=== PATIENT | female | born 1995 | race Caucasian/White ===

== ENCOUNTER 2016-06-02 20:13 | Emergency (ER) | payer BC ==
--- NOTE | 2016-06-02 22:06 | DIAGNOSTIC IMAGING REPORT ---
PROCEDURE: US OB 1ST TRIMESTER W/TRANSVAG INDICATION: ABNORMAL BLEEDING TECHNIQUE: Hutchison scale, color, and spectral Doppler transabdominal and endovaginal sonographic images of the first trimester gravid uterus were obtained. COMPARISON: None. FINDINGS: TRANSABDOMINAL SCANS: The gravid uterus is anteverted in position and contains a fundal gestational sac with a moderate decidual response. No suspicious adnexal mass. Grossly normal kidneys. TRANSVAGINAL SCANS: There is a fundal intrauterine gestational sac with an average sac diameter of 8.4 mm which corresponds to a 2-hesc-5-day gestation. Yolk sac was identified but no visible pole. No perigestational hemorrhage. The cervix is closed and has a normal appearance. Normal vascularity in the uterus. The left ovary measures approximately 2.9 x 2.7 x 2.6 cm and contains a peripherally hypervascular corpus luteum measuring about 2.2 cm. The right ovary measures about 2.6 x 1.3 x 1.6 cm and has a normal echotexture and vascularity. IMPRESSION: 1. Intrauterine with sac diameter corresponding to a 7-cwny-7-day gestation with estimated due date 01/28/2017. pole is not yet identified. Follow serial Beta hCG levels and consider ultrasound in 1-2 weeks to determine viability. 2. No evidence of perigestational hemorrhage or a threatened . 3. Left ovarian corpus luteum.
--- NOTE | 2016-06-02 22:06 | DIAGNOSTIC IMAGING REPORT ---
PROCEDURE: US OB 1ST TRIMESTER W/TRANSVAG INDICATION: ABNORMAL BLEEDING TECHNIQUE: Hutchison scale, color, and spectral Doppler transabdominal and endovaginal sonographic images of the first trimester gravid uterus were obtained. COMPARISON: None. FINDINGS: TRANSABDOMINAL SCANS: The gravid uterus is anteverted in position and contains a fundal gestational sac with a moderate decidual response. No suspicious adnexal mass. Grossly normal kidneys. TRANSVAGINAL SCANS: There is a fundal intrauterine gestational sac with an average sac diameter of 8.4 mm which corresponds to a 0-qcae-4-day gestation. Yolk sac was identified but no visible pole. No perigestational hemorrhage. The cervix is closed and has a normal appearance. Normal vascularity in the uterus. The left ovary measures approximately 2.9 x 2.7 x 2.6 cm and contains a peripherally hypervascular corpus luteum measuring about 2.2 cm. The right ovary measures about 2.6 x 1.3 x 1.6 cm and has a normal echotexture and vascularity. IMPRESSION: 1. Intrauterine with sac diameter corresponding to a 3-ccja-7-day gestation with estimated due date 01/28/2017. pole is not yet identified. Follow serial Beta hCG levels and consider ultrasound in 1-2 weeks to determine viability. 2. No evidence of perigestational hemorrhage or a threatened . 3. Left ovarian corpus luteum.
--- NOTE | 2016-06-02 22:32 | ED CLINICAL REPORT ---
Clinical Report - Physicians/Mid Levels [facility] [address] [place] [address] 06/02/2016 20:17 [id number] Time Seen: 20:55 Jun 02 2016. Arrived- By private vehicle. Historian- patient (Friend (FEMALE)). HISTORY OF PRESENT ILLNESS Chief Complaint: VAGINAL BLEEDING. This started just prior to arrival and still present. The symptoms are described as mild. No urinary frequency or urgency of urination. Last normal menstrual period- April 24. (, last menstrual period middle of April, now approximately 6 weeks IUP, spotted today just 1 hour prior to arrival. Patient was her blood type is A+. Denies any pain. Denies any lightheadedness, syncope. Denies any vaginal discharge.). REVIEW OF SYSTEMS No vomiting or skin rash. All systems otherwise negative, except as recorded above. PAST HISTORY Problems: Problems. . Medications: Vitamins Oral. Allergies: No Known Drug Allergy. SOCIAL HISTORY Never smoker. Alcohol use. No drug use. ADDITIONAL NOTES The nursing notes have been reviewed. PHYSICAL EXAM Vital Signs: 06/02/2016 20:24 BP: 137/73. HR: 77. RR: 16. O2 saturation: 100%. Temp: 98.7 F. Pain level now: 0/10. Appearance: Alert. HEENT: Normal external inspection. CVS: Heart sounds normal. Respiratory: No respiratory distress. Breath sounds normal. Abdomen: Soft and nontender. Bowel sounds normal. No abdominal tenderness. : Slight vaginal bleeding, consisting of bright red blood, via the cervical os. No tenderness present on bimanual exam. No tenderness with movement of the cervix. Skin: Skin warm. Normal skin color. LABS, X-RAYS, AND EKG Laboratory Tests: UA-Culture if indicated: (RYAN: 06/02/2016 20:30) ( MsgRcvd 06/02/2016 22:15) Final results Test Result Flag Units (Reference) URINE COLOR LIGHT YELLOW URINE APPEARANCE CLEAR URINE GLUCOSE NEGATIVE (NEGATIVE) URINE BILIRUBIN NEGATIVE (NEGATIVE) URINE KETONE NEGATIVE (NEGATIVE) URINE SPECIFIC GRAVITY <= 1.005 L (1.010-1.030) URINE PH 6.0 (5.0-8.0) URINE PROTEIN NEGATIVE (NEGATIVE) URINE UROBILINOGEN 0.2 EU/dL (0.2-1.0) URINE NITRITE NEGATIVE (NEGATIVE) URINE BLOOD TRACE-LYSED (NEGATIVE) URINE LEUK ESTERASE NEGATIVE (NEGATIVE) URINE RBC NONE SEEN rbc/hpf (0-1) URINE WBC RARE wbc/hpf (0-1) URINE EPITHELIAL CELLS 0-1 EPI/hpf (0-5) URINE BACTERIA NONE SEEN (NONE SEEN) URINE COMMENT CULT NOT INDICATED URINE CULTURES ARE SET-UP BASED ON THE FOLLOWING CRITERIA:POSITIVE NITRITEPOSITIVE LEUKOCYTE ESTERASEGREATER THAN 10 WHITE BLOOD CELLSMODERATE (2+) OR GREATER BACTERIA CBC w Diff: (RYAN: 06/02/2016 20:54) ( [facility] [place] 21:08) Final results Test Result Flag Units (Reference) WHITE BLOOD COUNT 8.3 K/uL (4.5-11.5) RED BLOOD COUNT 4.32 M/uL (4.00-5.20) HEMOGLOBIN 13.1 gm/dL (12.0-16.0) HEMATOCRIT 38.3 % (36.0-46.0) MEAN CELL VOLUME 89 fL (80-100) MEAN CORPUSCULAR HGB 30 pg (26-34) MEAN CORPUSCULAR HGB CONC 34 g/dL (31-37) RED CELL DISTRIBUTION WIDTH 12.5 % (11.6-14.8) PLATELET COUNT 297 K/uL (150-400) NEUTROPHIL % 77.1 H % (50-75) LYMPH % 14.7 L % (25-40) MONO % 7.0 % (3-14) EOSINOPHIL % 0.8 % (0-4) BASOPHIL % 0.4 % (0-2) CMP: (RYAN: 06/02/2016 20:54) ( [facility] [place] 22:29) Final results Test Result Flag Units (Reference) GLUCOSE 106 mg/dL (70-110) BUN 11 mg/dL (7-18) CREATININE 0.9 mg/dL (0.6-1.3) Estimated GFR >60 mL/min Estimated GFR- >60 mL/min Note: Persistent reduction over 3 months in eGFR<60 mL/min/1.73 m2 defines CKD. Patients with eGFR values>=60 mL/min/1.73 m2 may also have CKD if evidence ofpersistent proteinuria. Additional information may be foundat www.kidney.org. SODIUM 141 mmol/L (136-145) POTASSIUM 3.6 mmol/L (3.5-5.1) CHLORIDE 106 mmol/L (98-107) CARBON DIOXIDE 24 mmol/L (21-32) CALCIUM 9.2 mg/dL (8.5-10.1) TOTAL PROTEIN 7.3 g/dL (6.4-8.2) ALBUMIN 4.0 g/dL (3.3-5.0) BILIRUBIN, TOTAL 1.0 mg/dL (0.0-1.0) ALKALINE PHOSPHATASE 60 U/L (46-116) AST (SGOT) 16 U/L (15-37) ALT (SGPT) 20 U/L (12-78) BETA HCG, QUANTITATIVE 5808 mIU/mL REFERENCE RANGE:Adult Males: <2 mIU/mLNon- Females: <6 mIU/mL Females:Approximate Approximate hCGGestational Age Range (mIU/mL) 0-1 week 0-501-2 weeks 40-3002-3 weeks 100-84694-2 weeks 500-35527-7 months 5,000-200,0002-3 months 10,000-100,0002nd trimester 3,000-50,0003rd trimester 1,000-50,000 Wet Prep: (RYAN: 06/02/2016 20:45) ( MsgRcvd 06/02/2016 22:02) Final results SPECIMEN DESCRIPTION: C Test Result Flag Units (Reference) WET MOUNT CLUE CELLS:: FEW * EPITHELIAL CELLS: MODERATE -- SOURCE?: CERVIX WHITE BLOOD CELLS: FEW TRICHOMONAS:: NONE -- YEAST:: NONE . Note - Tests: (IMPRESSION: 1. Intrauterine with sac diameter corresponding to a 0-geho-7-day gestation with estimated due date 01/28/2017. pole is not yet identified. Follow serial Beta hCG levels and consider ultrasound in 1-2 weeks to determine viability. 2. No evidence of perigestational hemorrhage or a threatened . 3. Left ovarian corpus luteum. Electronically Final signed by:Hillary Conteh MD 06/02/2016 10:06:10 PM). PROGRESS AND PROCEDURES Course of Care: Chaperoned exam with RN She reports she is A positive. At this time patient with no pain. Minimal spotting. HCD as above. Discussed this with patient need follow-up and childless. Patient decided if she will be having the to term or having an . Discussed options with her. She understands need to follow-up. Ultrasound consistent with hCG, LMP, And gestational age. 06/02/2016 21:45 BP: 110/62. HR: 82. RR: 16. O2 saturation: 100%. Pain level now: 0/10. Patient is stable. Symptoms better. Patient/family counseled. Disposition: Discharged. CLINICAL IMPRESSION Threatened . INSTRUCTIONS Drink plenty of fluids. (repeat labs in 48 hours BETA HCG, QUANTITATIVE 5808). Follow-up with: Uziel Lisa MD, Obstetrics/Gynecology, , [facility], [address] [place] [address] (Electronically signed by Nusrat Soni P.A.-C 06/02/2016 22:37)
--- NOTE | 2016-06-02 22:32 | ED ORDER SUMMARY ---
..... Patient: BERT HERNANDEZ OrderSheet [facility] VisitID: [id number] [place] [address] 20y, F Registration Date/Time: 06/02/2016 ORDER SHEET Weight: 81.6 kg (stated) Allergies: No Known Drug Allergy GENERAL ORDERS: US OB 1st Trimester w Transvag (april 24) Urgent (20:28 06/02/2016 EKoroleva P.A.-C) (Ack 20:29 CHategekimana) (21:59 MCook R.N.) CBC w Diff Urgent (20:28 06/02/2016 EKoroleva P.A.-C) (Ack 20:32 CHategekimana) (20:59 CHagerty ER Button Cutting Machine Operator) CMP Urgent (20:28 06/02/2016 EKoroleva P.A.-C) (Ack 20:32 CHategekimana) (20:59 CHagerty ER Button Cutting Machine Operator) Serum Quantitative Urgent (20:28 06/02/2016 EKoroleva P.A.-C) (Ack 20:32 CHategekimana) (20:59 CHagerty ER Button Cutting Machine Operator) Pelvic Exam Setup (20:28 06/02/2016 EKoroleva P.A.-C) (20:32 CHategekimana) GC/Chlamydia (Cervix) (c) Urgent (21:53 06/02/2016 JQuivey R.N. verbal order read back to EKoroleva P.A.-C) (21:59 MCook R.N.) Wet Prep (Cervix) (c) Urgent (21:54 06/02/2016 JQuivey R.N. verbal order read back to EKoroleva P.A.-C) (21:59 MCook R.N.) UA-Culture if indicated Urgent (21:58 06/02/2016 EKoroleva P.A.-C) (21:59 MCook R.N.) MEDICATION ORDERS: IV FLUIDS: ORDER SHEET NOTES: [Electronically signed by Nusrat Soni PLeticiaA.-C (22:37 06/02/2016)] [Electronically signed by Halima Andrew R.N. (22:38 06/02/2016)] [Electronically locked/signed by Halima Andrew R.N. (22:38 06/02/2016)]
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
--- NOTE | 2016-06-02 22:32 | ED ORDER SUMMARY ---
..... Patient: BERT HERNANDEZ OrderSheet [facility] VisitID: [id number] [place] [address] 20y, F Registration Date/Time: 06/02/2016 ORDER SHEET Weight: 81.6 kg (stated) Allergies: No Known Drug Allergy GENERAL ORDERS: US OB 1st Trimester w Transvag (april 24) Urgent (20:28 06/02/2016 EKoroleva P.A.-C) (Ack 20:29 CHategekimana) (21:59 MCook R.N.) CBC w Diff Urgent (20:28 06/02/2016 EKoroleva P.A.-C) (Ack 20:32 CHategekimana) (20:59 CHagerty ER Information Security Specialist) CMP Urgent (20:28 06/02/2016 EKoroleva P.A.-C) (Ack 20:32 CHategekimana) (20:59 CHagerty ER Information Security Specialist) Serum Quantitative Urgent (20:28 06/02/2016 EKoroleva P.A.-C) (Ack 20:32 CHategekimana) (20:59 CHagerty ER Information Security Specialist) Pelvic Exam Setup (20:28 06/02/2016 EKoroleva P.A.-C) (20:32 CHategekimana) GC/Chlamydia (Cervix) (c) Urgent (21:53 06/02/2016 JQuivey R.N. verbal order read back to EKoroleva P.A.-C) (21:59 MCook R.N.) Wet Prep (Cervix) (c) Urgent (21:54 06/02/2016 JQuivey R.N. verbal order read back to EKoroleva P.A.-C) (21:59 MCook R.N.) UA-Culture if indicated Urgent (21:58 06/02/2016 EKoroleva P.A.-C) (21:59 MCook R.N.) MEDICATION ORDERS: IV FLUIDS: ORDER SHEET NOTES: [Electronically signed by Nusrat Soni PLeticiaA.-C (22:37 06/02/2016)] [Electronically signed by Halima Andrew R.N. (22:38 06/02/2016)] [Electronically locked/signed by Halima Andrew R.N. (22:38 06/02/2016)]
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
--- NOTE | 2016-06-02 22:32 | ED CLINICAL REPORT ---
Clinical Report - Physicians/Mid Levels [facility] [address] [place] [address] 06/02/2016 20:17 [id number] Time Seen: 20:55 Jun 02 2016. Arrived- By private vehicle. Historian- patient (Friend (FEMALE)). HISTORY OF PRESENT ILLNESS Chief Complaint: VAGINAL BLEEDING. This started just prior to arrival and still present. The symptoms are described as mild. No urinary frequency or urgency of urination. Last normal menstrual period- April 24. (, last menstrual period middle of April, now approximately 6 weeks IUP, spotted today just 1 hour prior to arrival. Patient was her blood type is A+. Denies any pain. Denies any lightheadedness, syncope. Denies any vaginal discharge.). REVIEW OF SYSTEMS No vomiting or skin rash. All systems otherwise negative, except as recorded above. PAST HISTORY Problems: Problems. . Medications: Vitamins Oral. Allergies: No Known Drug Allergy. SOCIAL HISTORY Never smoker. Alcohol use. No drug use. ADDITIONAL NOTES The nursing notes have been reviewed. PHYSICAL EXAM Vital Signs: 06/02/2016 20:24 BP: 137/73. HR: 77. RR: 16. O2 saturation: 100%. Temp: 98.7 F. Pain level now: 0/10. Appearance: Alert. HEENT: Normal external inspection. CVS: Heart sounds normal. Respiratory: No respiratory distress. Breath sounds normal. Abdomen: Soft and nontender. Bowel sounds normal. No abdominal tenderness. : Slight vaginal bleeding, consisting of bright red blood, via the cervical os. No tenderness present on bimanual exam. No tenderness with movement of the cervix. Skin: Skin warm. Normal skin color. LABS, X-RAYS, AND EKG Laboratory Tests: UA-Culture if indicated: (RYAN: 06/02/2016 20:30) ( MsgRcvd 06/02/2016 22:15) Final results Test Result Flag Units (Reference) URINE COLOR LIGHT YELLOW URINE APPEARANCE CLEAR URINE GLUCOSE NEGATIVE (NEGATIVE) URINE BILIRUBIN NEGATIVE (NEGATIVE) URINE KETONE NEGATIVE (NEGATIVE) URINE SPECIFIC GRAVITY <= 1.005 L (1.010-1.030) URINE PH 6.0 (5.0-8.0) URINE PROTEIN NEGATIVE (NEGATIVE) URINE UROBILINOGEN 0.2 EU/dL (0.2-1.0) URINE NITRITE NEGATIVE (NEGATIVE) URINE BLOOD TRACE-LYSED (NEGATIVE) URINE LEUK ESTERASE NEGATIVE (NEGATIVE) URINE RBC NONE SEEN rbc/hpf (0-1) URINE WBC RARE wbc/hpf (0-1) URINE EPITHELIAL CELLS 0-1 EPI/hpf (0-5) URINE BACTERIA NONE SEEN (NONE SEEN) URINE COMMENT CULT NOT INDICATED URINE CULTURES ARE SET-UP BASED ON THE FOLLOWING CRITERIA:POSITIVE NITRITEPOSITIVE LEUKOCYTE ESTERASEGREATER THAN 10 WHITE BLOOD CELLSMODERATE (2+) OR GREATER BACTERIA CBC w Diff: (RYAN: 06/02/2016 20:54) ( [facility] 06/02/2016 21:08) Final results Test Result Flag Units (Reference) WHITE BLOOD COUNT 8.3 K/uL (4.5-11.5) RED BLOOD COUNT 4.32 M/uL (4.00-5.20) HEMOGLOBIN 13.1 gm/dL (12.0-16.0) HEMATOCRIT 38.3 % (36.0-46.0) MEAN CELL VOLUME 89 fL (80-100) MEAN CORPUSCULAR HGB 30 pg (26-34) MEAN CORPUSCULAR HGB CONC 34 g/dL (31-37) RED CELL DISTRIBUTION WIDTH 12.5 % (11.6-14.8) PLATELET COUNT 297 K/uL (150-400) NEUTROPHIL % 77.1 H % (50-75) LYMPH % 14.7 L % (25-40) MONO % 7.0 % (3-14) EOSINOPHIL % 0.8 % (0-4) BASOPHIL % 0.4 % (0-2) CMP: (RYAN: 06/02/2016 20:54) ( [facility] 06/02/2016 22:29) Final results Test Result Flag Units (Reference) GLUCOSE 106 mg/dL (70-110) BUN 11 mg/dL (7-18) CREATININE 0.9 mg/dL (0.6-1.3) Estimated GFR >60 mL/min Estimated GFR- >60 mL/min Note: Persistent reduction over 3 months in eGFR<60 mL/min/1.73 m2 defines CKD. Patients with eGFR values>=60 mL/min/1.73 m2 may also have CKD if evidence ofpersistent proteinuria. Additional information may be foundat www.kidney.org. SODIUM 141 mmol/L (136-145) POTASSIUM 3.6 mmol/L (3.5-5.1) CHLORIDE 106 mmol/L (98-107) CARBON DIOXIDE 24 mmol/L (21-32) CALCIUM 9.2 mg/dL (8.5-10.1) TOTAL PROTEIN 7.3 g/dL (6.4-8.2) ALBUMIN 4.0 g/dL (3.3-5.0) BILIRUBIN, TOTAL 1.0 mg/dL (0.0-1.0) ALKALINE PHOSPHATASE 60 U/L (46-116) AST (SGOT) 16 U/L (15-37) ALT (SGPT) 20 U/L (12-78) BETA HCG, QUANTITATIVE 5808 mIU/mL REFERENCE RANGE:Adult Males: <2 mIU/mLNon- Females: <6 mIU/mL Females:Approximate Approximate hCGGestational Age Range (mIU/mL) 0-1 week 0-501-2 weeks 40-3002-3 weeks 100-18277-6 weeks 500-65142-2 months 5,000-200,0002-3 months 10,000-100,0002nd trimester 3,000-50,0003rd trimester 1,000-50,000 Wet Prep: (RYAN: 06/02/2016 20:45) ( MsgRcvd 06/02/2016 22:02) Final results SPECIMEN DESCRIPTION: C Test Result Flag Units (Reference) WET MOUNT CLUE CELLS:: FEW * EPITHELIAL CELLS: MODERATE -- SOURCE?: CERVIX WHITE BLOOD CELLS: FEW TRICHOMONAS:: NONE -- YEAST:: NONE . Note - Tests: (IMPRESSION: 1. Intrauterine with sac diameter corresponding to a 0-lure-5-day gestation with estimated due date 01/28/2017. pole is not yet identified. Follow serial Beta hCG levels and consider ultrasound in 1-2 weeks to determine viability. 2. No evidence of perigestational hemorrhage or a threatened . 3. Left ovarian corpus luteum. Electronically Final signed by:Hillary Conteh MD 06/02/2016 10:06:10 PM). PROGRESS AND PROCEDURES Course of Care: Chaperoned exam with RN She reports she is A positive. At this time patient with no pain. Minimal spotting. HCD as above. Discussed this with patient need follow-up and childless. Patient decided if she will be having the to term or having an . Discussed options with her. She understands need to follow-up. Ultrasound consistent with hCG, LMP, And gestational age. 06/02/2016 21:45 BP: 110/62. HR: 82. RR: 16. O2 saturation: 100%. Pain level now: 0/10. Patient is stable. Symptoms better. Patient/family counseled. Disposition: Discharged. CLINICAL IMPRESSION Threatened . INSTRUCTIONS Drink plenty of fluids. (repeat labs in 48 hours BETA HCG, QUANTITATIVE 5808). Follow-up with: Uziel Lisa MD, Obstetrics/Gynecology, , [facility], [address] [place] [address] (Electronically signed by Nusrat Soni P.A.-C 06/02/2016 22:37)
--- NOTE | 2016-06-02 22:38 | ED MED RECONCILIATION SUMMARY ---
Patient: BERT HERNANDEZ Medication Reconciliation Report [facility] VisitID: [id number] [address] [place] [address] 20y, F Registration Date/Time: 06/02/2016 Weight: 81.6 kg Height/Length: 66 in. BMI: 29.0 ALLERGIES: No Known Drug Allergy The patient's Home Medications are listed below: THE FOLLOWING MEDICATIONS NEED TO BE RECONCILED: Vitamins Oral The source(s) of the original Home Medication information: Not obtained. The following Medications were given to the patient in the Emergency Department: None. The following Medications were prescribed to the patient: None.
--- NOTE | 2016-06-02 22:38 | ED DISCHARGE INSTRUCTIONS ---
Patient: BERT HERNANDEZ General Instructions [facility] VisitID: [id number] [place] [address] 20y, F Registration Date/Time: 06/02/2016 INSTRUCTIONS Drink plenty of fluids. (repeat labs in 48 hours BETA HCG, QUANTITATIVE 5808). Follow-up with: Uziel Lisa MD, Obstetrics/Gynecology, , [facility], [address] [place] [address] ADDITIONAL INFORMATION Possible Miscarriage (Threatened ) During early (first three months), it is not uncommon to have a small amount of bleeding. This can be entirely normal. But heavy bleeding or severe cramping can be an early sign of miscarriage. A miscarriage means unexpected loss of your . In about half of patients with bleeding or cramping during early , these symptoms will stop and the will continue normally. However, half of the time a miscarriage will occur. A miscarriage may occur due to various causes. These include a problem with the babys chromosomes (genes that carry the information needed for life) or with fertilization or implantation that didnt happen correctly. In most cases no cause can be found. Be reassured that this is not the result of anything that you did wrong, and it will not interfere with your ability to become in the future. Home Care: To improve the chance of keeping this , you should do the following: Rest in bed until the pain and bleeding stop. Do not have sexual intercourse for the next 3 weeks. Use sanitary napkins instead of tampons. Do not douche. Follow-Up: Make an appointment with your doctor within the next week, or as directed by our staff. Note: If you had an ultrasound, it will be reviewed by a specialist. You will be notified of any new findings that may affect your care. Get Prompt Medical Attention if any of the following occur: Vaginal bleeding or pain for more than three days Heavy bleeding (soaking one new pad an hour over three hours) Fever of 100.4F (38C) or higher, or as directed by your healthcare provider Increasing lower abdominal pain Weakness, dizziness, or fainting Passage of anything that resembles tissue: pink or grayish membrane or solid material (save the tissue in a clean container and bring to the doctor) You have been given the following additional information: Possible Miscarriage (Threatened ) (Electronically signed by Nusrat Soni P.A.-C 06/02/2016 22:37)
--- NOTE | 2016-06-02 22:38 | ED MAR SUMMARY ---
..... Medication Administration Record [facility] [address] [place], [place] [id number] Patient: BERT HERNANDEZ Visit ID: [id number] 20y, F Weight: 81.6 kg Height/Length: 66 in BMI: 29 ALLERGIES: No Known Drug Allergy
--- NOTE | 2016-06-02 22:38 | ED MED RECONCILIATION SUMMARY ---
Patient: BERT HERNANDEZ Medication Reconciliation Report [facility] VisitID: [id number] [address] [place] [address] 20y, F Registration Date/Time: 06/02/2016 Weight: 81.6 kg Height/Length: 66 in. BMI: 29.0 ALLERGIES: No Known Drug Allergy The patient's Home Medications are listed below: THE FOLLOWING MEDICATIONS NEED TO BE RECONCILED: Vitamins Oral The source(s) of the original Home Medication information: Not obtained. The following Medications were given to the patient in the Emergency Department: None. The following Medications were prescribed to the patient: None.
--- NOTE | 2016-06-02 22:38 | ED MAR SUMMARY ---
..... Medication Administration Record [facility] [address] [place], [place] [id number] Patient: BERT HERNANDEZ Visit ID: [id number] 20y, F Weight: 81.6 kg Height/Length: 66 in BMI: 29 ALLERGIES: No Known Drug Allergy
--- NOTE | 2016-06-02 22:38 | ED DISCHARGE INSTRUCTIONS ---
Patient: BERT HERNANDEZ General Instructions [facility] VisitID: [id number] [place] [address] 20y, F Registration Date/Time: 06/02/2016 INSTRUCTIONS Drink plenty of fluids. (repeat labs in 48 hours BETA HCG, QUANTITATIVE 5808). Follow-up with: Uziel Lisa MD, Obstetrics/Gynecology, , [facility], [address] [place] [address] ADDITIONAL INFORMATION Possible Miscarriage (Threatened ) During early (first three months), it is not uncommon to have a small amount of bleeding. This can be entirely normal. But heavy bleeding or severe cramping can be an early sign of miscarriage. A miscarriage means unexpected loss of your . In about half of patients with bleeding or cramping during early , these symptoms will stop and the will continue normally. However, half of the time a miscarriage will occur. A miscarriage may occur due to various causes. These include a problem with the babys chromosomes (genes that carry the information needed for life) or with fertilization or implantation that didnt happen correctly. In most cases no cause can be found. Be reassured that this is not the result of anything that you did wrong, and it will not interfere with your ability to become in the future. Home Care: To improve the chance of keeping this , you should do the following: Rest in bed until the pain and bleeding stop. Do not have sexual intercourse for the next 3 weeks. Use sanitary napkins instead of tampons. Do not douche. Follow-Up: Make an appointment with your doctor within the next week, or as directed by our staff. Note: If you had an ultrasound, it will be reviewed by a specialist. You will be notified of any new findings that may affect your care. Get Prompt Medical Attention if any of the following occur: Vaginal bleeding or pain for more than three days Heavy bleeding (soaking one new pad an hour over three hours) Fever of 100.4F (38C) or higher, or as directed by your healthcare provider Increasing lower abdominal pain Weakness, dizziness, or fainting Passage of anything that resembles tissue: pink or grayish membrane or solid material (save the tissue in a clean container and bring to the doctor) You have been given the following additional information: Possible Miscarriage (Threatened ) (Electronically signed by Nusrat Soni P.A.-C 06/02/2016 22:37)
== END 2016-06-02 20:38 | disposition home or self-care (01) ==
LOC: ED SRH 20:13
DX: O20.0 Threatened abortion (principal); Z3A.01 Less than 8 weeks gestation of pregnancy
CPT/HCPCS: 90004; 90100; 90195; 90197; 91227; 91228; 95059